=== PATIENT | female | born 1965 | race Caucasian/White ===

== ENCOUNTER 2017-01-29 11:01 | Emergency (ER) | payer OTHER ==
[2017-01-29 11:40] VITALS: BP 152/83
[2017-01-29] MEDS ORDERED: ALPRAZolam TAB* 0.5 MG PO ONE (11:50)
--- NOTE | 2017-01-29 17:16 | ED ---
Medical Screening - HPI Summary HPI Summary: Patient presents with anxiety. Her current PCP moved recently and she has not been accepted by anyone except [facility]. According to the patient, she has started the intake process but since she is only at the beginning, they are unable to prescribe her usual antianxiety medications. She ran out of her Xanax 2mg and would like to have a refill of this medication for the next month. She denies symptoms other than her anxiety. - History of Current Complaint Onset/Duration: Started Days Ago Severity: severe Associated Signs and Symptoms: Negative <Aldair Cox - Last Filed: 01/29/17 17:16> <Ofelia Hodge - Last Filed: 01/30/17 07:57> - History of Current Complaint Chief Complaint: EDGeneral Stated Complaint: ANXIETY Time Seen by Provider: 01/29/17 11:13 PMH/Surg Hx/FS Hx/Imm Hx Psychiatric History: Reports: Hx Anxiety Infectious Disease History: No Infectious Disease History: Denies: Traveled Outside the [place] in Last 30 Days - Family History Known Family History: Positive: None - Social History Occupation: Unemployed Lives: With Family Alcohol Use: Rare Substance Use Type: Reports: None Smoking Status (MU): Light Every Day Tobacco Smoker Cessation Counseling: Patient Advised to Stop <Aldair Cox - Last Filed: 01/29/17 17:16> Review of Systems Positive: Anxious All Other Systems Reviewed And Are Negative: Yes <Aldair Cox - Last Filed: 01/29/17 17:16> Physical Exam Triage Information Reviewed: Yes Vital Signs On Initial Exam: Initial Vitals Temp Pulse Resp BP Pulse Ox 96.0 F 123 16 186/90 97 01/29/17 11:04 01/29/17 11:04 01/29/17 11:04 01/29/17 11:04 01/29/17 11:04 Vital Signs Reviewed: Yes Appearance: Positive: Well-Appearing, No Pain Distress, Well-Nourished Skin: Positive: Warm, Skin Color Reflects Adequate Perfusion, Dry, Soft Head/Face: Positive: Normal Head/Face Inspection Eyes: Positive: EOMI, PAPITO, Conjunctiva Clear ENT: Positive: Hearing grossly normal Neck: Positive: Supple, Nontender Respiratory/Lung Sounds: Positive: Clear to Auscultation, Breath Sounds Present Cardiovascular: Positive: RRR Abdomen Description: Positive: Nontender, Soft Bowel Sounds: Positive: Present Musculoskeletal: Negative: Edema Left, Edema Right Neurological: Positive: Sensory/Motor Intact, Alert, Oriented to Person Place, Time, NV Bundle Intact Distally Psychiatric: Positive: Anxious AVPU Assessment: Alert <Aldair Cox - Last Filed: 01/29/17 17:16> Vital Signs On Initial Exam: Initial Vitals Temp Pulse Resp BP Pulse Ox 96.0 F 123 16 186/90 97 01/29/17 11:04 01/29/17 11:04 01/29/17 11:04 01/29/17 11:04 01/29/17 11:04 <Ofelia Hodge - Last Filed: 01/30/17 07:57> Diagnostics - Vital Signs Vital Signs Temp Pulse Resp BP Pulse Ox 01/29/17 12:01 18 01/29/17 11:36 99.0 F 104 20 152/83 96 01/29/17 11:04 96.0 F 123 16 186/90 97 <Aldair Cox - Last Filed: 01/29/17 17:16> - Vital Signs Vital Signs Temp Pulse Resp BP Pulse Ox 01/29/17 12:01 18 01/29/17 11:36 99.0 F 104 20 152/83 96 01/29/17 11:04 96.0 F 123 16 186/90 97 <Ofelia Hodge - Last Filed: 01/30/17 07:57> Course/Dx - Course Course Of Treatment: I let the patient know that I could not give her a refill of her medication, but that I could provide a number for her to call to establish care with a new provider or she could call her recent providers office to see if anyone else in the office could manage her issues. I was willing to give her 4 pills for two days to allow her time to get in touch with either of these options. <Aldair Cox - Last Filed: 01/29/17 17:16> <Ofelia Hodge - Last Filed: 01/30/17 07:57> - Diagnoses Provider Diagnoses: Medication refill Discharge <Aldair Cox - Last Filed: 01/29/17 17:16> <Ofelia Hodge - Last Filed: 01/30/17 07:57> - Discharge Plan Condition: Stable Disposition: HOME Prescriptions: Alprazolam [Xanax] 2 mg PO BID #4 tab MDD 2 Patient Education Materials: Anxiety (ED) Referrals: [facility] [place] [facility] [Outside] Additional Instructions: Please call the number provided to establish care with a new provider. You can also call the office where your former career development coordinator worked to see if they can get you in with a different provider, since they have your records. Use the medication provided as needed. Attestations User Type: Provider - I was available for consult. This patient was seen by the advanced practice provider. The patient was not presented to, seen by, or examined by me.-Juliann <Ofelia Hodge - Last Filed: 01/30/17 07:57>
== END 2017-01-29 12:36 | disposition home or self-care (01) ==
LOC: ED 11:01
DX: Z76.0 Encounter for issue of repeat prescription (principal); F41.9 Anxiety disorder, unspecified; F17.210 Nicotine dependence, cigarettes, uncomplicated
CPT/HCPCS: 99282; A9270-GY